=== PATIENT | female | born 1990 | race American Indian/Alaskan Native ===

== ENCOUNTER 2020-03-23 13:00 | Outpatient (CLI) | payer MEDICAID ==
[2020-03-23 13:44] VITALS: BP 113/72
== END 2020-03-23 14:00 | disposition home or self-care (01) ==
LOC: TRG 13:00 → APU 13:01 → TRG 14:00
PROVIDERS: ATTEND Obstetrics & Gynecology
DX: Z34.93 Encounter for supervision of normal pregnancy, unspecified, third trimester (principal); Z3A.37 37 weeks gestation of pregnancy
CPT/HCPCS: 59025